=== PATIENT | female | born 1945 | race Caucasian/White ===

== ENCOUNTER → 2020-08-17 | Outpatient (CLI) | payer OTHER ==
[~2020-08-17] MED LIST: ELIQUIS 2.5 MG2.5 MG PO; FLOMAX 0.4 MG0.4 MG PO; FLONASE 0.05% N16 GM; NORCO 5-325 TA1 EACH PO; PREMARIN VAG CR30 GM PV; PROTONIX40 MG PO; SYNTHROID25 MCG PO; XARELTO15 PACK PO
== END ==
LOC: MAMO 07-03 13:00
DX: Z12.31 Encounter for screening mammogram for malignant neoplasm of breast (principal)
CPT/HCPCS: 77063; 77067

== ENCOUNTER → 2020-08-25 | Outpatient (CLI) | payer OTHER | LOC: RAD 15:46 | DX: M25.473 Effusion, unspecified ankle (principal) | CPT/HCPCS: 73610 ==

== ENCOUNTER 2020-10-01 12:42 | Emergency (ER) | payer OTHER ==
[~2020-10-01 12:42] MED LIST changes: -FLOMAX 0.4 MG0.4 MG PO
== END 2020-10-01 13:28 | disposition left against medical advice (07) ==
LOC: ER1 12:42
DX: Z53.21 Procedure and treatment not carried out due to patient leaving prior to being seen by health care provider (principal)

== ENCOUNTER 2020-10-11 11:59 | Emergency (ER) | payer OTHER ==
[~2020-10-11] VITALS: Ht 160 cm; Wt 72.6 kg
[2020-10-11 13:50] LABS: HEMOGLOBIN 11.5 gm/dl (12.3-15.3); RED BLOOD COUNT 4.22 M/UL (4.00-5.10); WHITE BLOOD COUNT 9.8 K/UL (4.5-11.0)
[2020-10-11 14:01] LABS: BUN/CREATININE RATIO 11 (0-10)
[2020-10-11] MEDS ORDERED: FLOMAX 0.4 MG0.4 MG PO (15:10)
== END 2020-10-11 15:20 | disposition home or self-care (01) ==
LOC: ER1 11:59
PROVIDERS: Family Medicine
DX: N13.2 Hydronephrosis with renal and ureteral calculous obstruction (principal); G89.29 Other chronic pain; F11.20 Opioid dependence, uncomplicated; Z88.2 Allergy status to sulfonamides; Z86.718 Personal history of other venous thrombosis and embolism; Z79.899 Other long term (current) drug therapy; Z79.01 Long term (current) use of anticoagulants
CPT/HCPCS: 80053; 81001; 85025; 96374; 96375; 96376; 99284; J1885; J2270; J2405

== ENCOUNTER → 2021-03-09 | Outpatient (CLI) | payer OTHER ==
[~2021-03-09] VITALS: Ht 162.6 cm; Wt 71.7 kg
[~2021-03-09] MED LIST changes: +FLOMAX 0.4 MG0.4 MG PO
== END ==
LOC: EROP 11:20
DX: U07.1 COVID-19 (principal); Z23 Encounter for immunization
CPT/HCPCS: J2270; J2405; M0247; Q0247